=== PATIENT | female | born 1965 | race Caucasian/White ===

== ENCOUNTER → 2016-07-23 | Outpatient (CLI) | payer OTHER ==
[~2016-07-23] MED LIST: ACETAMINOPHEN PO; ADVAIR 2501 DISK W/D; ADVAIR 2501 DISK W/D PO; ALBUTEROL17 GM; ALPRAZOLAM PO; ALPRAZOLAM0.5 MG; ALPRAZOLAM0.5 MG PO; B COMPLEX1 CA1; B COMPLEX1 TAB PO; CARDIZEM CD PO; CARDIZEM CD300 MG PO; CARDIZEM SR; CARDIZEM SR PO; CARTIA XT240 MG PO; CETIRIZINE HCL10 MG PO; CIPRO PO; COMBIVENT INH14.7 GM; COMBIVENT INH14.7 GM INH; COMBIVENT U/D3 M1 NEB; COMBIVENT U/D3 ML INH; DARVOCET-N 1001 TA1 PO; DEMEROL50 MG PO; DESYREL50 MG PO; DUONEB 2.5-0.5 M3 ML; EPIPEN0.3 MG/0.1; EPIPEN0.3 MG/0.1 IM; FERGON240 ( 27 ) PO; FIORINAL CAPSUL1 CAP PO; FISH OIL 1,2001 EAC1; HCTZ PO; HYDROCHLOROTHIA25 MG; HYDROCHLOROTHIA25 MG PO; INDERAL LA120 MG PO; IRON SUPPLEMENT1 TAB PO; IRON1 TA1 PO; LEVAQUIN PO; LISINOPRIL10 MG; LISINOPRIL10 MG PO; LORTAB 5/500 TA1 TA1 PO; MEDROL PO; NASACORT AQ; NASACORT AQ16.5 GM; NASONEX17 GM; NITROGYLCERIN SUBLINGUAL; NITROSTAT0.4 MG; NITROSTAT0.4 MG SL; OMEGA 3-6-9 11200 MG; OMEGA-3100 MG; OMEPRAZOLE20 M2; OXYGEN; PLAVIX PO; PRILOSEC; PRILOSEC20 M1 PO; PRILOSEC20 MG PO; PRINIVIL20 M1 PO; PROPRANOLOL HCL60 M1 PO; SIMVASTATIN40 MG; SINGULAIR PO; SYMBICORT80; SYMBICORT80 INH; TOPIRAGEN100 MG PO; TOPIRAMATE25 MG PO; TRICOR; ULTRAM PO; VITAL-D RX TABL1 TAB; VITAMIN B12; VITAMIN D250000 UNIT PO; VITAMIN D50000 UNIT; VYTORIN 10-10 M1 TAB; VYTORIN 10-40 M1 TAB PO; VYTORIN 10/20 T1 TAB PO; WELLBUTRIN PO; ZANTAC PO; ZOCOR PO; [UNRECOGNIZED DRUG - OTHER]
--- NOTE | ~2016-07-23 | CT57 ---
[facility] A Service of [facility] RADIOLOGY TEXT RESULTS PATIENT: PEDRO LU LOCATION: [facility] : 67 UNIT #: [id number] AGE: [address]: Pat Doan SEX: F ORDER DR: [id number] [facility] [address] [place], [place] [address] [id number] O MR#: [id number] Acc #: [id number] NAME: PEDRO LU : 1965 SEX: F STUDY DATE/TIME: 07/23/2016 10:04 UNIT: [facility] ROOM: STUDY DESCRIPTION: CT Chest Wo Cont Attending Physician: Pat Doan A.P.R.N. Referring Physician: Pat Doan A.P.R.N. Ordering Physician: Pat Doan A.P.R.N. Primary Care Physician: Makayla Boston M.D. MEDICAL IMAGING REPORT This report is preliminary unless electronic signature is present EXAM CT chest without contrast, high-resolution. INDICATION 51-year-old female with shortness of breath and abnormal pulmonary function tests. Chronic shortness of breath but worse for 3-[address] of the chest was performed without contrast. Selected HRCT imaging was obtained in the supine and prone positioning. This CT exam was performed with one or more of the following radiation dose reduction techniques: automatic exposure control, adjustment of mA and/or kV according to patient size, and iterative reconstruction. COMPARISON 01/20/2016 FINDINGS The lung epps are clear. There is no evidence for bronchiectasis or diffuse infiltrative lung disease. There is no honeycombing. There is no lymphadenopathy or pleural effusion. Limited imaging of the upper abdomen is unremarkable. Bone windows are unremarkable. IMPRESSION Negative high-resolution chest CT. Dictated by... Luis Hernandez M.D. THIS IS AN ELECTRONICALLY VERIFIED REPORT Luis Hernandez M.D. at 07/25/2016 9:08 AM ARS/jt [facility] A Service of [facility] RADIOLOGY TEXT RESULTS PATIENT: PEDRO LU LOCATION: [facility] : 67 UNIT #: [id number] AGE: [address]: Pat Doan SEX: F ORDER DR: TD: 07/23/2016 17:07 JOB #: [id number] MEDICAL IMAGING REPORT Page 1 of 1 COPY
== END | disposition home or self-care (01) ==
LOC: CCAT 09:22
DX: R94.2 Abnormal results of pulmonary function studies (principal); R06.02 Shortness of breath
CPT/HCPCS: 71250